=== PATIENT | male | born 1965 | race Two or more races ===

== ENCOUNTER 2020-05-30 10:06 | Inpatient (IN) | payer MEDICARE, OTHER ==
[~2020-05-30] VITALS: Ht 170.2 cm; Wt 56.7 kg
--- NOTE | 2020-05-30 10:12 | NUR ---
mavis, on 5149, suicidal "i want to hang myself" Patient a/ox4, breathing even and unlabored, no sob noted. Needs attended, denies any pain at this time. Patient assisted to bed, sitter at bedside. Changed into a gown. Called security for wanding.
--- NOTE | 2020-05-30 10:15 | NUR ---
urine collected and sent to lab
[2020-05-30 10:31] LABS: BILIRUBIN,URINE Negative (NEGATIVE); COLOR,URINE YELLOW (YELLOW); LEUKOCYTE ESTERASE ,URINE Negative (NEGATIVE); NITRITE, URINE Negative (NEGATIVE); PROTEIN,URINE Trace mg/dl (NEGATIVE); UGLUCOSE Negative (NEGATIVE); UROBILINOGEN,URINE 0.2 EU/dL (0.2)
[2020-05-30 10:39] LABS: BACTERIA,URINE Rare /HPF (None Seen); MUCUS,URINE Few /LPF (None Seen); RBC,URINE 0-2 /HPF (0-2); WBC,URINE 0-2 /HPF (0-3)
--- NOTE | 2020-05-30 10:45 | NUR ---
covid swab sent.
[2020-05-30 10:50] LABS: ACETAMINOPHEN < 10 ug/ml (10-30); ALANINE AMINOTRANSFERASE 20 U/L (12-78); ALBUMIN 3.6 g/dL (3.4-5.0); ALCOHOL, BLOOD < 3 mg/dL (0-0); ALKALINE PHOSPHATASE 75 U/L (46-116); ASPARTATE AMINOTRANSFERASE 18 U/L (15-37); BILIRUBIN,DIRECT 0.1 mg/dL (0.0-0.2); BILIRUBIN,TOTAL 0.7 mg/dL (0.2-1.0); CALCIUM, SERUM 8.6 mg/dL (8.5-10.1); CARBON DIOXIDE 29 mmol/L (21-32); CHLORIDE 106 mmol/L (98-107); CREATININE 1.1 mg/dL (0.6-1.3); GLUCOSE 92 mg/dL (74-106); POTASSIUM 3.6 mmol/L (3.5-5.1); SODIUM SERUM 144 mmol/L (136-145); TOTAL PROTEIN, SERUM 6.9 g/dL (6.4-8.2); UREA NITROGEN, BLOOD 15 mg/dL (7-18)
[2020-05-30 10:53] LABS: BASOPHILS % (AUTO) 0.4 % (0.0-2.0); EOSINOPHILS % (AUTO) 0.3 % (0.0-6.0); HEMATOCRIT 42 % (39-51); HEMOGLOBIN 13.7 g/dL (13.5-17.5); LYMPHOCYTES # (AUTO) 0.2 /CMM (0.8-4.8); LYMPHOCYTES % (AUTO) 5.3 % (20.0-44.0); MEAN CORPUSCULAR HGB CONC 33 g/dl (31.0-36.0); MEAN CORPUSCULAR VOLUME 96 fL (80-96); MONOCYTES # (AUTO) 0.4 /CMM (0.1-1.30); MONOCYTES % (AUTO) 9.1 % (2.0-12.0); NEUTROPHILS % (AUTO) 84.9 % (43.0-81.0); PLATELET COUNT (AUTO) 163 /CMM (150-450); RED BLOOD CELL COUNT(AUTO) 4.34 MIL/uL (4.5-6.0); WHITE BLOOD COUNT (AUTO) 4.7 K/uL (4.3-11.0)
[2020-05-30] MEDS ORDERED: QUET300T2 PO (12:27)
[2020-05-30] MEDS ORDERED: MULT-1299 PO (12:27)
[2020-05-30] MEDS ORDERED: DULO60CA64 PO (12:27)
--- NOTE | 2020-05-30 12:38 | NUR ---
NURSING SUP CALLED WITH BED 212-A
--- NOTE | 2020-05-30 12:50 | NUR ---
REPORT GIVEN TO ELLIOTT TUCKER.
--- NOTE | 2020-05-30 13:03 | NUR ---
WAITING FOR COVID SWAB RESULT.
--- NOTE | 2020-05-30 13:29 | NUR ---
PATIENT TRANSFERRED TO ROOM 212A, IN STABLE CONDITION.
[2020-05-30] MEDS ORDERED: BLOOD SUGAR DIAGNOSTIC 1 EACH STRIP IN ONE (14:00)
[2020-05-30] MEDS ORDERED: ACETAMINOPHEN 325 MG TABLET PO PRN (14:00)
[2020-05-30] MEDS ORDERED: ZOLPIDEM TARTRATE 5 MG TABLET PO PRN (14:00)
[2020-05-30] MEDS ORDERED: LORAZEPAM 0.5 MG TABLET PO PRN (14:00)
[2020-05-30] MEDS ORDERED: MAGNESIUM HYDROXIDE 30 ML UDC PO PRN (14:00)
[2020-05-30] MEDS ORDERED: MAG HYDROX/AL HYDROX/SIMETH 30 ML UDC PO PRN (14:00)
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
[2020-05-30 14:48] VITALS: BP 109/73
[2020-05-30 16:00] VITALS: BP 113/86
[2020-05-30 20:00] VITALS: BP 123/77
[2020-05-31 06:56] LABS: ALBUMIN 3.7 g/dL (3.4-5.0); BILIRUBIN,TOTAL 1.1 mg/dL (0.2-1.0); CALCIUM, SERUM 8.7 mg/dL (8.5-10.1); POTASSIUM 3.9 mmol/L (3.5-5.1)
[2020-05-31 07:09] LABS: CHOLESTEROL 145 mg/dL (<200); HDL CHOLESTEROL 52 mg/dL (40-60); LDL 77 mg/dL (0-99); TRIGLYCERIDES 71 mg/dL (30-150)
[2020-05-31 08:00] VITALS: BP 114/62
[2020-05-31] MEDS ORDERED: MULTIVITS,TH W-FE,OTHER MIN 1 TAB TABLET PO SCH (09:00)
[2020-05-31] MEDS: ESCITALOPRAM OXALATE (10 MG) 10 MG TABLET PO SCH (11:29)
[2020-05-31] MEDS: OLANZAPINE 5 MG TABLET PO SCH ×2 (11:29→20:12)
[2020-05-31 16:00] VITALS: BP 125/90
[2020-05-31 20:39] VITALS: BP 104/66
[2020-06-01 08:00] VITALS: BP 119/76
[2020-06-01] MEDS: OLANZAPINE 5 MG TABLET PO SCH ×2 (08:13→21:31)
[2020-06-01] MEDS: ESCITALOPRAM OXALATE (10 MG) 10 MG TABLET PO SCH (08:13)
[2020-06-01] MEDS: MULTIVIT W/MINERALS 1 TAB TABLET PO SCH (08:18)
[2020-06-01 16:00] VITALS: BP 108/68
[2020-06-01 19:53] VITALS: BP 98/66
[2020-06-02 08:09] VITALS: BP 109/66
[2020-06-02] MEDS: ESCITALOPRAM OXALATE (10 MG) 10 MG TABLET PO SCH (08:15)
[2020-06-02] MEDS: OLANZAPINE 5 MG TABLET PO SCH ×2 (08:16→20:43)
[2020-06-02] MEDS: MULTIVIT W/MINERALS 1 TAB TABLET PO SCH (10:32)
--- NOTE | 2020-06-02 12:45 | NUR ---
[facility] Contact: [facility] called [facility] ([phone]) and was unable to make contact or leave a voicemail.
--- NOTE | 2020-06-02 12:56 | NUR ---
Initial Discharge Plan: Pt currently resides in a fci located at [address] [place] [address]; ([phone]). Per pt, he would like to return. JAYCOB will work with the pt and the MD regarding appropriate discharge planning. SW will form a safe and proper discharge plan.
[2020-06-02 16:00] VITALS: BP 109/74
[2020-06-02 20:02] VITALS: BP 112/71
--- NOTE | 2020-06-02 20:44 | NUR ---
PRN MOM given for constipation- noted pt with no BM fro 2 days.
--- NOTE | 2020-06-03 00:01 | NUR ---
Pt in bed ,sleeping , easy to arouse. Cont to monitor.
--- NOTE | 2020-06-03 06:23 | NUR ---
MOM in-effective pt noted on 3rd day no BM, no s/sx of discomfort, no c/o pain- slept good during shift, cooperative and took his meds, also encourage more fluid intake. All needs anticipated and attended , will endorse to am oncoming nurse continuity of care and monitoring of pt's BM- to possibly ask another laxative PRN from MD for pt's constipation. Safety precautions observed.
--- NOTE | 2020-06-03 06:38 | NUR ---
Pt woke up- asked if he had bowel movement last night- per pt NO BM, however stated that he had X 1 during the day yesterday- nothing noted in pt's I & O , will verify with previous LENS CLEANER /staff who is back today. Pt denies pain or discomfort, cooperative. All needs attended. Will endorse continuity of care to am oncoming nurse.
[2020-06-03 08:00] VITALS: BP 105/59
[2020-06-03] MEDS: MULTIVIT W/MINERALS 1 TAB TABLET PO SCH (08:18)
[2020-06-03] MEDS: ESCITALOPRAM OXALATE (10 MG) 10 MG TABLET PO SCH (08:18)
[2020-06-03] MEDS: OLANZAPINE 5 MG TABLET PO SCH ×2 (08:19→20:56)
--- NOTE | 2020-06-03 15:19 | NUR ---
[facility] Contact: Norah ([phone]) from [facility] contacted the SW and inquired about the pts progress. SW stated that the pt is still suicidal and stated that he is going through medication adjustments. SW stated that she will call and inform them when he is ready for discharge.
[2020-06-03 16:00] VITALS: BP 104/79
[2020-06-03 20:17] VITALS: BP 114/60
[2020-06-04 08:00] VITALS: BP 116/76
[2020-06-04] MEDS: ESCITALOPRAM OXALATE (10 MG) 10 MG TABLET PO SCH (08:15)
[2020-06-04] MEDS: OLANZAPINE 5 MG TABLET PO SCH ×2 (08:15→20:45)
[2020-06-04] MEDS: MULTIVIT W/MINERALS 1 TAB TABLET PO SCH (08:15)
[2020-06-04 16:00] VITALS: BP 123/74
[2020-06-04 20:04] VITALS: BP 107/62
[2020-06-04 20:28] VITALS: BP 107/62
--- NOTE | 2020-06-05 06:45 | NUR ---
RN NOTE PATIENT SLEPT WELL AT NIGHT, NO BEHAVIOR ISSUES NOTED. PT. IS CALM & COOPERATIVE.
[2020-06-05 08:00] VITALS: BP 114/74
[2020-06-05] MEDS: ESCITALOPRAM OXALATE (10 MG) 10 MG TABLET PO SCH (08:41)
[2020-06-05] MEDS: MULTIVIT W/MINERALS 1 TAB TABLET PO SCH (08:41)
[2020-06-05] MEDS: OLANZAPINE 5 MG TABLET PO SCH ×2 (08:41→20:36)
[2020-06-05 16:00] VITALS: BP 102/74
[2020-06-05] MEDS: ENSURE ENLIVE 237 ML LIQUID (VANILLA) PO SCH (16:12)
[2020-06-05 20:00] VITALS: BP 101/61
[2020-06-06 08:00] VITALS: BP 109/73
[2020-06-06] MEDS: ESCITALOPRAM OXALATE (10 MG) 10 MG TABLET PO SCH (08:45)
[2020-06-06] MEDS: ENSURE ENLIVE 237 ML LIQUID (VANILLA) PO SCH ×2 (08:45→16:33)
[2020-06-06] MEDS: OLANZAPINE 5 MG TABLET PO SCH ×2 (08:45→20:50)
[2020-06-06] MEDS: MULTIVIT W/MINERALS 1 TAB TABLET PO SCH (08:45)
--- NOTE | 2020-06-06 09:00 | NUR ---
RN NOTE- PT ALERT ORIENTED PERSON PLACE GUARDED A BIT PARANOID, MED COMPLIANT NO BEHAVIORAL ISSUES CONFUSED AND INAPPROPRIATE SMILING AT TIMES/ INCONGRUENCE
[2020-06-06 16:00] VITALS: BP 103/77
[2020-06-06 20:05] VITALS: BP 111/67
[2020-06-07 08:00] VITALS: BP 118/74
[2020-06-07] MEDS: ENSURE ENLIVE 237 ML LIQUID (VANILLA) PO SCH ×2 (08:17→17:00)
[2020-06-07] MEDS: MULTIVIT W/MINERALS 1 TAB TABLET PO SCH (08:17)
[2020-06-07] MEDS: OLANZAPINE 5 MG TABLET PO SCH ×2 (08:17→21:55)
[2020-06-07] MEDS: ESCITALOPRAM OXALATE (10 MG) 10 MG TABLET PO SCH (08:17)
[2020-06-07 16:00] VITALS: BP 122/70
[2020-06-07 20:32] VITALS: BP 104/74
[2020-06-08 08:00] VITALS: BP 118/77
[2020-06-08] MEDS: ENSURE ENLIVE 237 ML LIQUID (VANILLA) PO SCH ×2 (09:00→16:17)
[2020-06-08] MEDS: OLANZAPINE 5 MG TABLET PO SCH ×2 (09:00→21:12)
[2020-06-08] MEDS: ESCITALOPRAM OXALATE (10 MG) 10 MG TABLET PO SCH (09:00)
[2020-06-08] MEDS: MULTIVIT W/MINERALS 1 TAB TABLET PO SCH (09:00)
--- NOTE | 2020-06-08 11:51 | NUR ---
[facility] Contact: JAYCOB called Norah ([phone]) from the [facility] and informed her that the pt will be discharged tomorrow. She stated that the facility will be ready for the pt.
[2020-06-08 16:00] VITALS: BP 118/79
[2020-06-08 19:39] VITALS: BP 101/62
[2020-06-08 20:19] VITALS: BP 101/62
[2020-06-09 08:00] VITALS: BP 124/69
[2020-06-09] MEDS: MULTIVIT W/MINERALS 1 TAB TABLET PO SCH (08:14)
[2020-06-09] MEDS: ESCITALOPRAM OXALATE (10 MG) 10 MG TABLET PO SCH (08:14)
[2020-06-09] MEDS: OLANZAPINE 5 MG TABLET PO SCH (08:14)
[2020-06-09] MEDS: ENSURE ENLIVE 237 ML LIQUID (VANILLA) PO SCH (08:19)
--- NOTE | 2020-06-09 08:53 | NUR ---
Dr. Nuno gave an order to D/C hold and D/C to [facility] and to follow up with psych and medical doctors. Per psychiatrist pt. is ok to be discharged via a taxi. Pt. without distress, denies suicidal and homicidal. Belongings ready and discharge papers ready. Addendum: 06/09/20 at 1113 by ANATOLY FINCH RN Scarletttry made aware of the discharge and with prescriptions.
--- NOTE | 2020-06-09 10:00 | NUR ---
Called the applied mathematician of the [facility] at [phone] and spoke to Norah and confirmed she will take him today. [place] of the intermediate [place] [address] [place] [address].
--- NOTE | 2020-06-09 10:45 | NUR ---
Discharge Note: Pt [place] [facility] [place] [address] [place] [address]; ([phone]). SW spoke to the studio operator Norah ([phone]) to confirm the pts discharge. Pt will be discharged via taxi at 11AM. Upon discharge, the pt presents with a calm affect and was mood congruent. Pt appears to be oriented x3 (time, place, and self). Pt denies both suicidal and homicidal ideation as well as auditory and visual hallucinations. Pt appears to be ambulatory with a steady gait. Pt appears to be well groomed and appropriately dressed. Pt will be under the care of his reading instructor, Dr. Gillespie, located at [address] [place] [address]; and pts psychiatrist, Dr. Mckeon, located at [address] [facility] [place] [address], . The multidisciplinary exit care form was done, printed, signed, and given to the patient.
--- NOTE | 2020-06-09 11:00 | NUR ---
Pt. the unit with belongings and discharge papers via a taxi. Pt. was escorted by staff to the lobby. Left without distress and ambulatory. Pt. instructed on meds to continue at home and verbalizes understanding and advised to make a follow up with psych and medical doctors. Norah neckties painter of the retirement and instructed on meds to continue and advised to make a follow up with psych and medical doctors.
== END 2020-06-09 11:00 | disposition home or self-care (01) | DRG 885 ==
LOC: ER 10:11 → GPS 12:46
PROVIDERS: ADMIT Psychiatry & Neurology Psychiatry; ATTEND Nurse Practitioner Family
DX: F25.1 Schizoaffective disorder, depressive type (principal); R45.851 Suicidal ideations; E44.1 Mild protein-calorie malnutrition; Z68.1 Body mass index [BMI] 19.9 or less, adult; F29 Unspecified psychosis not due to a substance or known physiological condition; F41.9 Anxiety disorder, unspecified; Z92.21 Personal history of antineoplastic chemotherapy; Z85.71 Personal history of Hodgkin lymphoma; Z73.6 Limitation of activities due to disability; Z20.822 Contact with and (suspected) exposure to COVID-19
CPT/HCPCS: 36415; 80048-TC; 80053-TC; 80061-TC; 80076-TC; 81001; 82962-TC; 85025-TC; 87081-TC; G0480